=== PATIENT | female | born 1980 | race Hispanic/Latino ===

== ENCOUNTER 2017-09-03 12:10 | Outpatient (CLI) | payer MEDICAID | END 2017-09-03 12:11 | disposition home or self-care (01) | LOC: LAB 12:10 | PROVIDERS: ATTEND Internal Medicine | DX: E11.9 Type 2 diabetes mellitus without complications (principal) | CPT/HCPCS: 36415; 83036 ==

== ENCOUNTER 2017-12-26 11:00 | Outpatient (CLI) | payer MEDICAID | END 2017-12-26 11:01 | disposition home or self-care (01) | LOC: SLR 11:00 | PROVIDERS: ATTEND Otolaryngology | DX: G47.33 Obstructive sleep apnea (adult) (pediatric) (principal); R40.0 Somnolence; R06.83 Snoring; I10 Essential (primary) hypertension; K21.9 Gastro-esophageal reflux disease without esophagitis; E03.9 Hypothyroidism, unspecified; E66.9 Obesity, unspecified | CPT/HCPCS: G0399 ==

== ENCOUNTER 2018-06-22 15:53 | Outpatient (CLI) | payer MEDICAID ==
--- NOTE | 2018-06-22 22:08 | Vascular Lab Report ---
PROCEDURE: VL VENOUS DUPLEX LE RT TECHNIQUE: PROCEDURE: US RIGHT LOWER EXTREMITY VENOUS DUPLEX DOPPLER TECHNIQUE: Duplex Doppler ultrasound of the RIGHT common and superficial femoral, popliteal, posteri or tibial, and proximal deep femoral veins was attempted. Arana scale imaging with and without rashad karlee, spectral waveform analysis with and without augmentation, and color flow Doppler were employed. CPT [id number] HISTORY: INFLAMMATION AND SWELLING COMPARISONS: None . FINDINGS: Deep Venous Thrombus: None . Soft tissue abnormality: An irregular cystic lesion is noted in the popliteal fossa measuring 2.9 x 0.9 cm most likely representing Dubon's cyst. . Other: None . IMPRESSION: Cystic lesion at the level of the most likely represents a Dubon's cyst. No evidence of acute deep vein thrombosis.. This document is electronically signed by Stevo Martinez MD., June 22 2018 10:06:43 PM ET
== END 2018-06-22 15:54 | disposition home or self-care (01) ==
LOC: VAS 15:53
PROVIDERS: ATTEND Podiatrist Foot & Ankle Surgery
DX: M79.89 Other specified soft tissue disorders (principal); M79.662 Pain in left lower leg; I10 Essential (primary) hypertension; K21.9 Gastro-esophageal reflux disease without esophagitis; E66.9 Obesity, unspecified; E03.9 Hypothyroidism, unspecified

== ENCOUNTER 2019-01-26 10:20 | Outpatient (CLI) | payer MEDICAID ==
[2019-01-29 14:06] LABS: Vitamin D, 25-OH, D2 <4 ng/mL
== END 2019-01-26 10:21 | disposition home or self-care (01) ==
LOC: LAB 10:20
PROVIDERS: ATTEND Internal Medicine
DX: E03.9 Hypothyroidism, unspecified (principal); E55.9 Vitamin D deficiency, unspecified; E66.01 Morbid (severe) obesity due to excess calories; E11.9 Type 2 diabetes mellitus without complications; I10 Essential (primary) hypertension; K21.9 Gastro-esophageal reflux disease without esophagitis
CPT/HCPCS: 36415; 82306; 83036; 84443